=== PATIENT | female | born 1955 | race Caucasian/White ===

== ENCOUNTER 2017-12-29 18:46 | Inpatient (IN) | payer BC ==
[~2017-12-29] VITALS: Ht 157.5 cm; Wt 83.9 kg
--- NOTE | ~2017-12-29 | DS ---
PATIENT:MICA MINA :59 MEDICAL RECORD: [id number] DISCHARGE SUMMARY ADMISSION DATE: 12/30/17 DISCHARGE DATE: 01/01/18 DATE OF ADMISSION: 12/30/2017 DATE OF DISCHARGE: 01/01/2018 CONDITION ON DISCHARGE: Improved. ADMITTING DIAGNOSES: Bowel obstruction secondary to ventral hernia, obesity, hyperlipidemia, hypertension, history of arteriosclerotic heart disease, and history of atrial fibrillation. DISCHARGE DIAGNOSES: Ventral hernia, bowel obstruction, RLS, obesity, and diabetes. HOSPITAL COURSE: This patient is a 62-year-old female who developed lower abdominal discomfort on Friday. She continued to have abdominal discomfort. Her last bowel movement had been on Friday. She developed nausea and vomiting times 10. She went into the Emergency Room. CT revealed small-bowel obstruction with ventral hernias and felt the patient warranted admission. PHYSICAL EXAMINATION: VITAL SIGNS: She was afebrile, vital signs stable. HEENT: Unremarkable. NECK: Supple. There is no adenopathy. HEART: Regular. LUNGS: Clear. ABDOMEN: She did have umbilical hernia present, very tender to touch, this was reduced. Bowel sounds were hypoactive. LABORATORY DATA: White count was elevated at 19.9, hemoglobin 17.6, hematocrit was 49.3, platelets 308. Sodium 136, potassium 3.9, chloride 99, BUN was 11, creatinine 0.9, glucose 180. Liver functions normal. Amylase and lipase were unremarkable. The patient was admitted, IV hydration, NG tube placed. Surgical consultation was obtained as well. She was seen in consultation by Milena Alexandra who felt that the patient should continue with IV hydration, antiemetics, and repair of the hernia. Once the patient was discharged stable, the patient's bowel obstruction did resolve. She was started on liquid diet, advanced to a full liquid diet, which she tolerated very well. Her white count on the 7th was down to 8.2, hemoglobin 13.9, hematocrit 40.2, her platelets were 223. Sodium 142, potassium 3.6, chloride 106, CO2 was 30, BUN is 5, creatinine 0.7, glucose 132. Urinalysis is unremarkable. The patient had a KUB, the KUB showed stable positioning of the NG tube, cholecystectomy, nonspecific gas pattern. NG tube was removed. The patient tolerated her diet well. It was felt the patient could be discharged. DISCHARGE MEDICATIONS: She was discharged on Flexl 10 mg p.o. q.8 hours p.r.n. muscle spasm, Ultram 50 mg 1-2 every 6 hours p.r.n. severe pain, Betapace 80 mg p.o. b.i.d., Protonix 40 mg once a day, Mirapex 0.5 mg p.o. q.h.s. p.r.n. restless legs, Neurontin 200 mg p.o. q.h.s., aspirin 81 mg once a day, Hyzaar 50/12.5 once a day, and Crestor 10 mg once a day. DISCHARGE INSTRUCTIONS: She was to be on a regular diet. Her activities were DISCHARGE SUMMARY REPORT [id number] MICA MINA ad alisha. She would follow up with me on 01/08/18 at 9:45. She would follow up with Dr. Alexandra on 01/15/18 at 10:45. They would schedule a repair of her umbilical hernia at that time. TRANSINT:[id number] Voice Confirmation ID: [id number] DOCUMENT ID: [id number] MILENA FABIAN MD at 0742 CC: [id number] DICTATION DATE: 01/25/18 1115 CONSTRUCTION WORKER: 01/25/18 1742 DIS IN 01/01/18 [facility] [address] [place] [address]
--- NOTE | ~2017-12-29 | HP ---
PATIENT: MICA MINA MEDICAL RECORD: [id number] ACCOUNT: [id number] LOCATION:D.[facility] [id number] : 59 ADMISSION DATE: 12/30/17 HISTORY AND PHYSICAL EXAMINATION DATE OF ADMISSION: 12/30/17 CHIEF COMPLAINT: Abdominal pain. HISTORY OF PRESENT ILLNESS: A 62-year-old female who developed lower abdominal discomfort on Friday. She has continued to have abdominal discomfort. Her last bowel movement was on Friday. She developed nausea and vomiting, had nausea and vomiting times 10 prior to her entrance into the Emergency Room. CT scan revealed small bowel obstruction with a ventral hernia. It was felt the patient should be admitted. PAST MEDICAL HISTORY: Her past history is significant in that she has had history of having carpal tunnel syndrome. She had a cholecystectomy. She has had hernia repair in the past and hiatal hernia. She had cardiac stents. She has had section, hysterectomy. Hypertension, gastroesophageal reflux, restless legs, hyperlipidemia, history of atrial fibrillation. FAMILY HISTORY: Mother had numerous heart problems. She had hypertension as well as asthma and diabetes. Father had cerebrovascular accident and of a stroke. 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. She has also worked at the [employer]. Educated through the 12th grade. She is currently . Her habits are none. She was born in [place], [place]. ALLERGIES: NUMEROUS. SHE IS ALLERGIC TO CODEINE, EGGS, LIPITOR, PENICILLIN, SOY, SULFA, ZESTORETIC. MEDICATIONS: Include aspirin 81 mg once a day, Flexeril 10 mg p.o. at bedtime, gabapentin 300 mg p.o. at bedtime, Lasix 40 mg one p.o. daily, losartan 50/12.5 one p.o. daily, meloxicam 15 mg once a day, pantoprazole 40 mg one p.o. daily, KCl 10 mEq once a day, Mirapex 0.5 mg p.o. at bedtime, Premarin vaginal cream one applicator b.i.d., Crestor 10 mg once a day, sotalol 80 mg p.o. b.i.d., tramadol 50 mg q. 6 hours p.r.n. severe pain, trazodone 150 mg p.o. at bedtime. REVIEW OF SYSTEMS: CONSTITUTIONAL: She denies any headache, seizure, or syncope. She denies change in visual or auditory acuity. PULMONARY: She denies any shortness of breath, cough, congestion, history of TB, asthma, or bronchitis. CARDIOVASCULAR: Unremarkable. GASTROINTESTINAL: As stated above. She has had nausea and vomiting. PHYSICAL EXAMINATION: VITAL SIGNS: In the Emergency Room, this patient's pulse initially was 101. Temperature 98.4, respirations 20, blood pressure 134/87, her pulse is 95. HEENT: Her head is normocephalic. No lesions. Ears; TMs clear. Eyes; pupils are equal, round, and reactive to light. Her extraocular movements are intact. Her nasal cavity, oral cavity, and oropharynx are clear. HISTORY AND PHYSICAL [id number] MICA MINA NECK: Supple. There is no adenopathy. HEART: Regular rate. LUNGS: Clear. ABDOMEN: Soft. Bowel sounds positive. The patient did have an umbilical hernia, very tender to touch. She did have some abdominal distention with hyperactive bowel sounds. LABORATORY DATA: White count was elevated at 19.9, hemoglobin 17.6, hematocrit is 49.3, platelets are 308. She had sodium of 136, potassium 3.9, chloride 99, CO2 was 26, BUN was 11, creatinine 0.9, and glucose was elevated at 180. Liver functions were normal. Amylase and lipase was unremarkable. The patient's urinalysis was unremarkable as well. The patient had a CT scan of the abdomen. The CT did reveal dilated loops of small bowel, consistent with mechanical obstruction. There was a ventral hernia with loops of bowel, extending through the abdominal wall. Ovarian cyst was noted on the left. ASSESSMENT: 1. Bowel obstruction secondary to ventral hernia. 2. Obesity. 3. Hyperlipidemia. 4. Hypertension. 5. History of arteriosclerotic heart disease. 6. History of atrial fibrillation. PLAN: The patient is admitted. IV hydration. Pain control. NG suction. Surgical consultation for possible repair of the umbilical hernia. TRANSINT:[id number] Voice Confirmation ID: [id number] DOCUMENT ID: [id number] MILENA FABIAN MD at 0709 CC: [id number] DICTATION DATE: 12/30/17733 DIVING JUDGE: 12/30/17 0930 ADM IN [facility] [address] [place] [address]
[~2017-12-29 18:46] MED LIST: ASPIRIN81 MG PO; BETAPACE 80 MG80 MG PO; CYCLOBENZAPRINE10 MG PO; GABAPENTIN100 MG PO; HYZAAR 50-12.51 TAB PO; MIRAPEX0.5 MG PO; PLAVIX75 MG PO; PROTONIX40 MG PO
[2017-12-29] MEDS ORDERED: CRESTOR10 MG PO (18:56)
[2017-12-29 19:25] LABS: BASOPHILS 0.2 % (0-2); EOSINOPHILS 1.1 % (0-7); HEMATOCRIT 49.3 % (36.0-48.0); HEMOGLOBIN 17.6 g/dL (12-16); IMMATURE GRANULOCYTES 0.3 % (0-5); LYMPHOCYTES 9.6 % (15-50); MCH 30.4 pg (26.0-34.0); MCHC 35.7 g/dL (31.0-37.0); MCV 85.1 fL (80.0-100.0); MEAN PLATELET VOLUME 9.4 fL (7.4-10.4); NEUTROPHILS 84.8 % (40-80); RBC 5.79 10x6/uL (4.00-5.40); RDW 12.5 % (11.5-14.5); WBC 19.9 10x3/uL (4.8-10.8)
[2017-12-29 20:01] LABS: ALBUMIN 3.9 g/dL (3.4-5.0); ALKALINE PHOSPHATASE 95 U/L (46-116); ALT (SGPT) 41 U/L (10-68); AMYLASE - SERUM 43 U/L (25-115); CALC OSMOLALITY 275 mosm/kg (275-300); CALCIUM 9.6 mg/dL (8.5-10.1); CARBON DIOXIDE 26.2 mmol/L (21.0-32.0); CHLORIDE - SERUM 99 mmol/L (98-107); CREATININE - SERUM 0.8 mg/dL (0.6-1.3); LIPASE 128 U/L (73-393); PLATELET COUNT 308 10x3/uL (130-400); POTASSIUM - SERUM 3.9 mmol/L (3.5-5.1); PROTEIN - SERUM 8.1 g/dL (6.4-8.2); SODIUM 136 mmol/L (136-145); UREA NITROGEN 11 mg/dL (7-18); eGFR NON AFRICAN AMERICAN 77 mL/min (90-120)
[2017-12-29 20:02] LABS: APPEARANCE CLEAR (CLEAR); BILIRUBIN NEGATIVE (NEGATIVE); COLOR YELLOW (YELLOW); GLUCOSE NEGATIVE (NEGATIVE); KETONE SMALL mg/dL (NEGATIVE); NITRITE NEGATIVE (NEGATIVE); PROTEIN NEGATIVE (NEGATIVE); SPECIFIC GRAVITY 1.015 (1.005-1.020); UROBILINOGEN NORMAL (NORMAL)
[2017-12-29 20:03] LABS: GLUCOSE 180 mg/dL (74-106)
[2017-12-29 21:00] VITALS: BP 165/89
[2017-12-29 22:00] VITALS: BP 167/93
[2017-12-29 23:38] VITALS: BP 156/94
[2017-12-30 03:35] VITALS: BP 143/92; BMI 33.9
[2017-12-30 04:42] VITALS: BP 145/92
[2017-12-30 08:21] VITALS: BP 124/70
[2017-12-30 13:11] VITALS: BP 132/69
[2017-12-30 14:20] VITALS: Ht 157.5 cm; Wt 83.9 kg
[2017-12-30 16:19] VITALS: BP 115/68
[2017-12-30 21:01] VITALS: BP 138/70
[2017-12-31 01:08] VITALS: BP 157/79
[2017-12-31 04:00] VITALS: BP 121/69
[2017-12-31 04:52] LABS: BASOPHILS 0.2 % (0-2); EOSINOPHILS 4.3 % (0-7); HEMATOCRIT 41.7 % (36.0-48.0); IMMATURE GRANULOCYTES 0.2 % (0-5); LYMPHOCYTES 23.7 % (15-50); MCH 29.2 pg (26.0-34.0); MCHC 33.6 g/dL (31.0-37.0); MEAN PLATELET VOLUME 9.4 fL (7.4-10.4); MONOCYTES 5.9 % (2-11); NEUTROPHILS 65.7 % (40-80); PLATELET COUNT 254 10x3/uL (130-400); RBC 4.79 10x6/uL (4.00-5.40); RDW 12.3 % (11.5-14.5)
[2017-12-31 05:07] LABS: MCV 87.1 fL (80.0-100.0)
[2017-12-31 05:13] LABS: CALC OSMOLALITY 281 mosm/kg (275-300); CARBON DIOXIDE 27.4 mmol/L (21.0-32.0); CHLORIDE - SERUM 106 mmol/L (98-107); CREATININE - SERUM 0.8 mg/dL (0.6-1.3); POTASSIUM - SERUM 3.6 mmol/L (3.5-5.1); SODIUM 142 mmol/L (136-145); UREA NITROGEN 9 mg/dL (7-18); eGFR NON AFRICAN AMERICAN 77 mL/min (90-120)
[2017-12-31 05:16] LABS: GLUCOSE 90 mg/dL (74-106)
[2017-12-31 08:08] VITALS: BP 142/72
[2017-12-31 12:41] VITALS: BP 162/71
[2017-12-31 15:27] VITALS: BP 127/53
[2017-12-31 20:46] VITALS: BP 113/71
[2018-01-01 00:11] VITALS: BP 119/58
[2018-01-01 04:07] VITALS: BP 124/64
[2018-01-01 06:14] LABS: BASOPHILS 0.2 % (0-2); HEMATOCRIT 40.2 % (36.0-48.0); HEMOGLOBIN 13.9 g/dL (12-16); IMMATURE GRANULOCYTES 0.4 % (0-5); MCH 29.6 pg (26.0-34.0); MCHC 34.6 g/dL (31.0-37.0); MCV 85.7 fL (80.0-100.0); MEAN PLATELET VOLUME 9.2 fL (7.4-10.4); MONOCYTES 7.6 % (2-11); NEUTROPHILS 63.8 % (40-80); PLATELET COUNT 221 10x3/uL (130-400); RBC 4.69 10x6/uL (4.00-5.40); RDW 12.6 % (11.5-14.5)
[2018-01-01 06:22] LABS: WBC 8.2 10x3/uL (4.8-10.8)
[2018-01-01 06:35] LABS: CALC OSMOLALITY 281 mosm/kg (275-300); CALCIUM 8.7 mg/dL (8.5-10.1); CARBON DIOXIDE 30.1 mmol/L (21.0-32.0); CHLORIDE - SERUM 106 mmol/L (98-107); CREATININE - SERUM 0.8 mg/dL (0.6-1.3); GLUCOSE 132 mg/dL (74-106); POTASSIUM - SERUM 3.6 mmol/L (3.5-5.1); SODIUM 142 mmol/L (136-145); eGFR NON AFRICAN AMERICAN 77 mL/min (90-120)
[2018-01-01 06:41] LABS: UREA NITROGEN 5 mg/dL (7-18)
[2018-01-01] MEDS ORDERED: ULTRAM50 MG PO (06:59)
[2018-01-01] MEDS ORDERED: ASPIRIN81 MG PO (07:02)
[2018-01-01] MEDS ORDERED: BETAPACE 80 MG80 MG PO (07:02)
[2018-01-01] MEDS ORDERED: GABAPENTIN100 MG PO (07:02)
[2018-01-01] MEDS ORDERED: MIRAPEX0.5 MG PO (07:02)
[2018-01-01] MEDS ORDERED: CRESTOR10 MG PO (07:02)
[2018-01-01] MEDS ORDERED: HYZAAR 50-12.51 TAB PO (07:02)
[2018-01-01] MEDS ORDERED: PROTONIX40 MG PO (07:02)
[2018-01-01 08:01] VITALS: BP 137/69
== END 2018-01-01 09:35 | disposition home or self-care (01) | DRG 395 ==
LOC: D.ER 18:46 → D.EDHOLD 12-30 01:43 → D.MS 12-30 01:43
PROVIDERS: Emergency Medicine; Family Medicine; Surgery
PROC: 0D9670Z Drainage of Stomach with Drainage Device, Via Natural or Artificial Opening (ICD-10-PCS; principal; 2017-12-30)
DX: K43.6 Other and unspecified ventral hernia with obstruction, without gangrene (principal); N83.209 Unspecified ovarian cyst, unspecified side; I10 Essential (primary) hypertension; K21.9 Gastro-esophageal reflux disease without esophagitis; G25.81 Restless legs syndrome; E78.5 Hyperlipidemia, unspecified; E66.9 Obesity, unspecified; Z68.33 Body mass index [BMI] 33.0-33.9, adult; E11.9 Type 2 diabetes mellitus without complications

== ENCOUNTER 2018-01-26 05:50 | Day surgery (SDC) | payer BC ==
[2018-01-23 10:08] LABS: HEMOGLOBIN 14.6 g/dL (12-16); MCH 29.9 pg (26.0-34.0); MCHC 34.8 g/dL (31.0-37.0); MCV 86.1 fL (80.0-100.0); MEAN PLATELET VOLUME 9.5 fL (7.4-10.4); RBC 4.88 10x6/uL (4.00-5.40); RDW 12.5 % (11.5-14.5)
[2018-01-23 10:30] LABS: ANION GAP 14.6 mmol/L (8-16); CALCIUM 8.8 mg/dL (8.5-10.1); CARBON DIOXIDE 26.3 mmol/L (21.0-32.0); CREATININE - SERUM 0.9 mg/dL (0.6-1.3); POTASSIUM - SERUM 3.9 mmol/L (3.5-5.1)
[~2018-01-26] VITALS: Ht 157.5 cm; Wt 85.7 kg
--- NOTE | ~2018-01-26 | OP ---
PATIENT NAME: MICA MINA MEDICAL RECORD: [id number] :59 LOCATION:D.OPS ADMISSION DATE: SURGEON: MILENA LEE MD DATE OF OPERATION: 01/26/2018 PREOPERATIVE DIAGNOSES: 1. Recurrent ventral incisional hernia. 2. Sleep apnea. 3. Essential hypertension. 4. Gastroesophageal reflux disease. POSTOPERATIVE DIAGNOSES: 1. Recurrent incarcerated ventral incisional hernia. 2. Sleep apnea. 3. Essential hypertension. 4. Gastroesophageal reflux disease. SURGEON: Milena Lee MD PROCEDURE PERFORMED: 1. Exploratory laparotomy, lysis of adhesions. 2. Laparoscopic lysis of adhesions. Laparoscopic lysis of adhesion has taken greater than 50% of the operative time. 3. Explantation of prior mesh. 4. Laparoscopic incarcerated recurrent incisional hernia repair with mesh. ANESTHESIA: General. COMPLICATIONS: None. SPECIMENS: Mesh. Case was clean. COMPLICATIONS: None. ESTIMATED BLOOD LOSS: 75 cc. OPERATIVE COURSE: After consent was obtained, the patient was taken to the operating room and placed in supine position on the operating table. Next, general anesthesia was given via endotracheal intubation after a timeout was performed to confirm the correct patient and procedure. The abdomen was then prepped and draped in typical sterile fashion. Ioban dressing was placed. Local anesthetic was injected in the left upper quadrant at Galvan's point. A stab incision was made with an 11-blade scalpel. Using a 5-mm bladeless optical trocar, the abdomen was entered under direct laparoscopic vision. Adequate pneumoperitoneum was achieved. There was limited room in the abdomen. At this time, based on the degree of adhesions, two additional trocars were placed into the left lateral and left lower quadrant and 11-mm trocar and 5-mm trocar both are placed under direct laparoscopic vision. The next hour was spent performing laparoscopic lysis of adhesions. This took a significant portion of the case. This was extreme difficulty due to the patient's morbid obesity and previous incisional hernia repair with mesh. The mesh had torn loose at the superior portion of the incision. Two small bowel loops were densely adherent within the hernia sac. Meticulous dissection was performed of the small bowel out of the OPERATIVE REPORT [id number] MICA MINA hernia sac. The mesh was adherent to the transverse mesocolon as well, which was dissected off the anterior abdominal wall. Once this was complete, the previous incision was opened with a 10-blade scalpel, remaining portion of the subcutaneous tissue was opened with electrocautery. We immediately entered the abdomen. There was a ferguson of air. The Marcus retractor was placed. The small bowel was extracorporealized at this time, lysis of adhesions was performed. The bowel that was stuck within the hernia was meticulously dissected. All adhesions were taken off the bowel as well as Prolene sutures were removed within the serosa of the small bowel. The transverse colon was then identified. The mesh was excised from the transverse mesocolon using electrocautery and sent for pathology. At this time, the small bowel was run from the ligament of Treitz to the ileocecal valve. Again, lysis of adhesions was performed with Metzenbaum scissors. No injuries were identified. This was repeated a second time, again no injuries were identified. At this time, all small bowel was returned to the abdomen. The incisional hernia defect was closed primarily with the #1 looped PDS. The abdomen was reinsufflated. A [address] mesh was placed in the abdomen, secured in the anterior abdominal wall in a double crown fashion using OptiFix suture. The abdomen was then copiously irrigated and suctioned. Careful attention was paid to hemostasis. At this time, all remaining instruments were removed. The abdomen was desufflated. Trocars removed. Skin incisions were closed with roseann. At the end of the case, all needle and instrument counts were correct. No complications occurred. The patient was extubated and transferred to the PACU in stable condition. TRANSINT:[id number] Voice Confirmation ID: [id number] DOCUMENT ID: [id number] MILENA LEE MD at 1322 CC: [id number] DICTATION DATE: 01/26/18 1035 HOUSEPERSON: 01/26/18 1246 PRE [facility] [address] [place] [address]
[~2018-01-26 05:50] MED LIST changes: +CRESTOR10 MG PO; +ULTRAM50 MG PO
[2018-01-26 06:18] VITALS: BP 135/61; Ht 157.5 cm; Wt 85.7 kg
[2018-01-26 16:02] VITALS: BP 101/62
[2018-01-26 21:06] VITALS: BP 98/59
[2018-01-27 00:33] VITALS: BP 98/57
[2018-01-27 04:38] VITALS: BP 131/75
[2018-01-27 06:28] LABS: BASOPHILS 0.1 % (0-2); EOSINOPHILS 0.1 % (0-7); HEMATOCRIT 35.7 % (36.0-48.0); HEMOGLOBIN 11.8 g/dL (12-16); IMMATURE GRANULOCYTES 0.2 % (0-5); MCH 28.6 pg (26.0-34.0); MCHC 33.1 g/dL (31.0-37.0); MCV 86.7 fL (80.0-100.0); MEAN PLATELET VOLUME 9.4 fL (7.4-10.4); MONOCYTES 8.8 % (2-11); NEUTROPHILS 76.8 % (40-80); PLATELET COUNT 247 10x3/uL (130-400); RBC 4.12 10x6/uL (4.00-5.40); RDW 12.6 % (11.5-14.5); WBC 11.1 10x3/uL (4.8-10.8)
[2018-01-27 07:23] LABS: ALBUMIN 3.1 g/dL (3.4-5.0); ANION GAP 12.9 mmol/L (8-16); BILIRUBIN - TOTAL 1.33 mg/dL (0.2-1.3); CALCIUM 8.8 mg/dL (8.5-10.1); CARBON DIOXIDE 29.6 mmol/L (21.0-32.0); POTASSIUM - SERUM 4.5 mmol/L (3.5-5.1); PROTEIN - SERUM 6.3 g/dL (6.4-8.2)
[2018-01-27 08:20] VITALS: BP 103/52
[2018-01-27] MEDS ORDERED: BACTRIM DS TABL1 TAB PO (11:15)
[2018-01-27] MEDS ORDERED: HYDROCODON-ACE1 EAC7 PO (11:15)
[2018-01-27 13:31] VITALS: BP 117/53
== END 2018-01-27 16:24 | disposition home or self-care (01) ==
LOC: D.OPS 05:50 → D.PAN 08:00 → D.MS 15:39 → D.OPS 01-27 16:24
PROVIDERS: Anesthesiology; Surgery
DX: K43.2 Incisional hernia without obstruction or gangrene (principal); G47.30 Sleep apnea, unspecified; I10 Essential (primary) hypertension; K21.9 Gastro-esophageal reflux disease without esophagitis; E66.01 Morbid (severe) obesity due to excess calories; E11.9 Type 2 diabetes mellitus without complications; K66.0 Peritoneal adhesions (postprocedural) (postinfection)

== ENCOUNTER 2019-01-05 19:00 | Outpatient (CLI) | payer BC ==
[2018-01-26 06:18] VITALS: BMI 34.6
[~2019-01-05 19:00] MED LIST changes: +BACTRIM DS TABL1 TAB PO; +HYDROCODON-ACE1 EAC7 PO
== END 2019-01-05 23:59 | disposition home or self-care (01) ==
LOC: D.MAMMO 19:00
PROVIDERS: ATTEND Obstetrics & Gynecology
DX: Z12.31 Encounter for screening mammogram for malignant neoplasm of breast (principal)